=== PATIENT | male | born 1975 | race Caucasian/White ===

== ENCOUNTER 2017-10-17 09:37 | Emergency (ER) | payer BC ==
[~2017-10-17] VITALS: Ht 180.3 cm; Wt 93.0 kg
[2017-10-17 09:45] VITALS: Ht 180.3 cm; Wt 93.0 kg
[2017-10-17 10:22] LABS: BASOPHIL % 0.4 % (0-2); PLATELET COUNT 141 x10^3mcL (130-400); RED CELL DISTRIBUTION WIDTH 13.7 % (11.5-14.5)
[2017-10-17 10:37] LABS: CALCIUM 8.9 mg/dL (8.5-10.1); CARBON DIOXIDE 29.8 mmol/L (21-32); CHLORIDE SERUM 104 mmol/L (98-107); GFR1 > 60 mL/min; GLUCOSE SERUM 91 mg/dL (74-106); POTASSIUM SERUM 4.1 mmol/L (3.5-5.1); SODIUM SERUM 140 mmol/L (136-145)
[2017-10-17 10:41] LABS: ALBUMIN 3.9 g/dL (3.4-5.0); ALKALINE PHOSPHATASE 61 U/L (46-116); ALT/SGPT 47 U/L (16-63); AST/SGOT 16 U/L (15-37); BILIRUBIN TOTAL 0.4 mg/dL (0.20-1.00)
[2017-10-17 11:22] LABS: microscopic required? NO
[2017-10-17 11:39] LABS: urine erythrocyte NEGATIVE (NEGATIVE)
[2017-10-17 11:45] LABS: AMPHETAMINE QUAL UR NONE DETECTED (NEG <=1000)
[2017-10-17 11:51] VITALS: BP 129/70
[2017-10-17 12:27] LABS: MAGNESIUM 2.1 mg/dL (1.8-2.4); PHOSPHOROUS 3.9 mg/dL (2.5-4.9)
[2017-10-17 12:29] LABS: CHOLESTEROL/HDL RATIO 2.8
[2017-10-17 12:37] LABS: FREE T4 1.04 ng/dL (0.76-1.46); FREE THYROXINE INDEX 3.1 ug/dL (1.4-4.5); T4(THYROXINE) 8.8 ug/dL (4.7-13.3)
[2017-10-17 12:38] LABS: T3 TOTAL 1.07 ng/mL
== END 2017-10-17 11:52 | disposition left against medical advice (07) ==
LOC: ED 09:37 → DU 10:53
PROVIDERS: Emergency Medicine; Family Medicine
DX: I24.9 Acute ischemic heart disease, unspecified (principal); I10 Essential (primary) hypertension
CPT/HCPCS: 36415; 83880; 84439; J7030